=== PATIENT | male | born 1970 | race Caucasian/White ===

== ENCOUNTER 2022-11-01 11:07 | Outpatient (CLI) | payer OTHER, SELFPAY ==
[2022-11-01 11:30] LABS: Albumin* 4.3 g/dL (3.3-5.0)
[2022-11-01 11:31] LABS: Chloride* 105 mmol/L (96-114); Potassium* 4.8 mmol/L (3.6-5.1); Sodium* 137 mmol/L (135-149)
[2022-11-01 11:33] LABS: Bilirubin Total* 0.5 mg/dL (0.1-1.5); Carbon Dioxide* 25 mmol/L (20-32); Cholesterol* 208 mg/dL (90-199); Creatinine* 0.9 mg/dL (0.5-1.5); Estimated Glomerular Filt Rate 104 ml/min
[2022-11-01 11:34] LABS: Alanine Aminotransferase* 28 U/L (4-50); Alkaline Phosphatase* 54 U/L (40-150); Aspartate Amino Transferase* 27 U/L (12-35); Blood Urea Nitrogen* 9 mg/dL (7-30); Calcium* 9.2 mg/dL (8.4-10.6); Glucose* 102 mg/dL (60-115); Magnesium* 2.1 mg/dL (1.5-2.6); Total Protein* 7.1 g/dL (6.0-8.3); Triglycerides* 140 mg/dL (40-149)
[2022-11-01 11:35] LABS: HDL Cholesterol* 57 mg/dL (>=40); LDL Cholesterol Calculated 123 mg/dL (<100)
[2022-11-01 12:17] LABS: Microalbumin Creatinine Ratio 0 mg/g (0-30); Microalbumin Urine < 1 mg/dL
[2022-11-02 23:14] LABS: Prostate Specific Antigen Free 0.3 ng/mL; Prostate Specific Antigen%Free 21 %; Prostate Specific AntigenTotal 1.4 ng/mL (0.0-4.0)
== END 2022-11-01 11:08 | disposition home or self-care (01) ==
PROVIDERS: PCP Family Medicine; Visit Provider Family Medicine
DX: E78.5 Hyperlipidemia, unspecified (principal); I10 Essential (primary) hypertension; Z12.5 Encounter for screening for malignant neoplasm of prostate
CPT/HCPCS: 80053; 80061; 82043; 82570; 83735; 84153; 84154

== ENCOUNTER 2022-11-01 13:01 | Outpatient (CLI) | payer OTHER, SELFPAY ==
--- NOTE | 2022-11-01 13:00 | CRLHL7_ITS ---
For Patients: As a result of the Century Cures Act, medical imaging exams and procedure reports are released immediately into your electronic medical record. You may view this report before your referring provider. If you have questions, please contact your health care provider. INDICATION: Lung cancer screening. History of smoking. High risk patient with greater than 20 pack-year smoking history. TECHNIQUE: Low-dose lung cancer screening non-contrast CT chest. Dose reduction techniques were used. COMPARISON: None. FINDINGS: NODULES: None. LUNGS AND PLEURA: Normal. MEDIASTINUM: Normal. CORONARY ARTERY CALCIFICATION: Present. LIMITED UPPER ABDOMEN: Normal. MUSCULOSKELETAL: Normal. IMPRESSION: Negative for lung cancer screening purposes. CORONARY ARTERY CALCIFICATION. LUNG-RADS CATEGORY: 1. Negative. RADIOLOGIST RECOMMENDATION: Continued annual screening with low-dose CT chest in 12 months. Please note that all CT scans at this facility use dose modulation, iterative reconstruction, and/or weight-based dosing when appropriate to reduce radiation dose to as low as reasonably achievable. Dictated by Piter Ferrara MD @ 11/02/2022 9:05:12 AM (Electronically Signed)
== END 2022-11-01 13:02 | disposition home or self-care (01) ==
LOC: CT 13:02
PROVIDERS: PCP Family Medicine; Visit Provider Family Medicine
DX: Z12.2 Encounter for screening for malignant neoplasm of respiratory organs (principal); Z87.891 Personal history of nicotine dependence
CPT/HCPCS: 71271

== ENCOUNTER 2022-11-18 07:56 | Outpatient (CLI) | payer OTHER, SELFPAY ==
--- NOTE | 2022-11-18 10:19 | W.ANESCHARGE ---
Anesthesia Charges Start Date/Time Anesthesia Start Date: 11/18/22 Anesthesia Start Time: 09:58 Stop Date/Time Anesthesia Stop Date: 11/18/22 Anesthesia Stop Time: 10:35
--- NOTE | 2022-11-18 10:40 | W.ANESCHARGE ---
Anesthesia Charges Start Date/Time Anesthesia Start Date: 11/18/22 Anesthesia Start Time: 09:58 Stop Date/Time Anesthesia Stop Date: 11/18/22 Anesthesia Stop Time: 10:35
== END 2022-11-18 07:57 | disposition home or self-care (01) ==
LOC: OP CLINIC 07:57
PROVIDERS: PCP Family Medicine; Visit Provider Surgery
DX: Z12.11 Encounter for screening for malignant neoplasm of colon (principal); K63.5 Polyp of colon; K57.30 Diverticulosis of large intestine without perforation or abscess without bleeding; K62.89 Other specified diseases of anus and rectum; Z83.71 Family history of colonic polyps
CPT/HCPCS: 00811; 45380; 45385; 88305; J2704

== ENCOUNTER 2023-11-03 09:52 | Outpatient (CLI) | payer OTHER, SELFPAY ==
--- NOTE | 2023-11-03 10:00 | CRLHL7_ITS ---
For Patients: As a result of the Century Cures Act, medical imaging exams and procedure reports are released immediately into your electronic medical record. You may view this report before your referring provider. If you have questions, please contact your health care provider. INDICATION: Lung cancer screening. History of smoking. High risk patient with greater than 20 pack-year smoking history. TECHNIQUE: Low-dose lung cancer screening non-contrast CT chest. Dose reduction techniques were used. COMPARISON: 11/01/2022 FINDINGS: NODULES: Tiny perifissural nodules are present bilaterally. No suspicious pulmonary nodule. LUNGS AND PLEURA: No infiltrate or edema. No effusion or pneumothorax. Mild emphysema is present. MEDIASTINUM: No adenopathy. No thyroid nodule. CORONARY ARTERY CALCIFICATION: Present. LIMITED UPPER ABDOMEN: Unremarkable. MUSCULOSKELETAL: Mild multilevel degenerative disc disease. IMPRESSION: Negative for lung cancer screening purposes. LUNG-RADS CATEGORY: 1: Negative. RADIOLOGIST RECOMMENDATION: Continue annual screening with low-dose CT chest in 12 months. Please note that all CT scans at this facility use dose modulation, iterative reconstruction, and/or weight-based dosing when appropriate to reduce radiation dose to as low as reasonably achievable. Dictated by Vipin Weller MD @ 11/03/2023 11:01:07 AM (Electronically Signed)
--- OUTSIDE RECORDS SUMMARY | 2023-11-03 10:00 | XMS_ITS | Clinical Summary ---
Author Name Unknown Organization [facility] [facility] Address [place], [place] [address] Care Team Providers Care Lens Maker Name Role Phone Hattie Bishop MD Primary Care Provider + Allergies No known active allergies Medications Medication Sig Dispensed Refills Start Date End Date Status AUGMENTIN 875 MG-125 MG TABIndications:Acute suppurative otitis media with spontaneous rupture of eardrum take 1 tablet by oral route every 12 hours 28 0 05/25/2007 Active [id number] 3.5 MG-10,000 UNIT/ML-1 % OTIC DRPS (ALLSCRIPTS)Indications :Acute suppurative otitis media with spontaneous rupture of eardrum 4 drops 4 times daily for one week in both ears 10 1 06/24/2007 Active Active Problems Problem Noted Date Diagnosed Date Unspecified hearing loss 05/25/2007 Unspecified suppurative otitis media 05/25/2007 Encounters Date Type Department Care Team Description 09/19/2023 Lab Requisition [facility] [phone] Sindhu Sommers MD from Last 3 Months Social History Tobacco Use Types Packs/Day Years Used Date Smoking Tobacco: Never Alcohol Use Standard Drinks/Week Comments Not Asked 0 (1 standard drink = 0.6 oz pur e alcohol) Sex and Gender Information Value Date Recorded Sex Assigned at Not on file Gender Identity Not on file Sexual Orientation Not on file Obstetrics History Last Filed Vital Signs Vital Sign Reading Time Taken Comments Blood Pressure 137/90 05/25/2007 5:11 PM CDT Pulse 73 05/25/2007 5:11 PM CDT Temperature 36.8 ??C (98.3 ??F) 05/25/2007 5:11 PM CD T Respiratory Rate - - Oxygen Saturation - - Inhaled Oxygen Concentration - - Weight 90.4 kg (199 lb 6.4 oz) 05/25/2007 5:11 P M CDT Height - - Body Mass Index - - Plan of Treatment Health Maintenance Due Date Last Done Comments COVID-19 vaccine series (#1) 1972 Tdap 1983 Depression screening for age 12+ 1984 HIV for age 15-65 1987 BMI (ht and wt on same day) for age 18+ 1990 Hepatitis C screening for ag e 18-79 1990 Tetanus booster 1992 Colonoscopy through age 75 2017 Lipids for age 45-75 2017 07/26/2006 Zoster (shingles) series for age 50+ (1 of 2) 2022 Influenza for age 50-64 06/06/2023 Pneumococcal series for age 6-64 Aged Out No longer eligible based on patient's age to complete this topic Procedures Procedure Name Priority Date/Time Associated Diagnosis Comments LAB TRACKING EVENT Routine 09/19/2023 10 :18 AM SUB MASTER PATH TISSUE EXAM Routine 09/19/2023 10:1 0 AM SUB MASTER from Last 3 Months Results * LAB TRACKING EVENT (09/19/2023 10:18 AM SUB MASTER) Other (Other) Client Collect / Unknown 09/19/2023 10:18 AM SUB MASTER 09/19/2023 3:38 PM SUB MASTER Sindhu Sommers MD LAB BILL ONLY [facility] [address] [place] [id number], * PATH TISSUE EXAM (09/19/2023 10:10 AM SUB MASTER) Case Report Pathology Report ?Case: [id number] ? Authorizing Provider: ??Sindhu Sommers MD ?Collected: ? 09/19/2023 1010 ? Ordering Location: ? [facility] ?Received: ?09/19/2023 1619 ? Pathologist: ? Akil Yin MD ? Specimens: ?? A) - Right Vas Deferens ? B) - Left Vas Deferens ? 09/22/2023 3:56 PM SUB MASTER [facility] Final Diagnosis A) VAS DEFERENS, RIGHT, VASECTOMY: Complete luminal cross-section of vas deferens identified B) VAS DEFERENS, LEFT, VASECTOMY: Complete luminal cross-section of vas deferens identified 09/22/2023 3:56 PM SUB MASTER [facility] Clinical Information Bilateral vasectomies 09/22/2023 3:56 PM [facility] Gross Description A) Received in formalin, labeled with the patient's name and right vas def, is a 2.4 cm in length by 0.3 cm in diameter cylindrical segment of vas deferens. ??The specimen is entirely submitted in one cassette for sectioning by histology. B) Received in formalin, labeled with the patient's name and left vas def, is a 2.8 cm in length by 0.3 cm in diameter cylindrical segment of vas deferens. ??The specimen is entirely submitted in one cassette for sectioning by histology. EKW 09/19/2023 09/22/2023 3:56 PM SUB MASTER [facility] Microscopic Description The final diagnosis is based on microscopic examination of appropriate sections of all specimens. 09/22/2023 3:56 PM SUB MASTER [facility] Additional Information Interpreted at [facility] - [address] [place] [address] S. [facility] [address] [address] 09/22/2023 3:56 PM SUB MASTER [facility] Other (Right Vas Deferens) 09/19/2023 10:10 AM SUB MASTER 09/19/2023 4:19 PM SUB MASTER Specimen (specimen) (Left Vas Deferens) 09/19/2023 10:10 AM SUB MASTER 09/19/2023 4:19 PM SUB MASTER Sindhu Sommers MD PATHOLOGY/CYTOLOGY [facility] [address] [place] [address], [place] from Last 3 Months Care Teams Lens Maker Relationship Specialty Start Date End Date Hattie Bishop MD [address] [place] [address] PCP - General Family Practice 11/21/17
== END 2023-11-03 09:53 | disposition home or self-care (01) ==
PROVIDERS: PCP Family Medicine; Visit Provider Family Medicine
DX: Z12.2 Encounter for screening for malignant neoplasm of respiratory organs (principal); Z87.891 Personal history of nicotine dependence
CPT/HCPCS: 71271

== ENCOUNTER 2023-12-12 09:15 | Outpatient (CLI) | payer OTHER, SELFPAY | END 2023-12-12 09:16 | disposition home or self-care (01) | PROVIDERS: PCP Family Medicine; Visit Provider Family Medicine | DX: Z12.5 Encounter for screening for malignant neoplasm of prostate (principal); E78.2 Mixed hyperlipidemia; I10 Essential (primary) hypertension | CPT/HCPCS: 80048; 80061; G0103 ==

== ENCOUNTER 2024-01-15 07:29 | Emergency (ER) | payer OTHER, SELFPAY ==
[2024-01-15] VITALS (8 sets, daily range): BP systolic 128–151; BP diastolic 92–107; PULSE 58–63; RESP 16–20; TEMP 36.1; O2SAT 95–99; BMI 30.4
--- NOTE | 2024-01-15 08:04 | XR_ITS ---
Patient: CARLOS SIMMONS Facility:?[facility] Patient ID:?[id number] Site Patient ID:?[id number]. Site :?[id number] Study:?XRay-Chest Portable-01/15/2024 8:43:49 AM Ordering Physician:Dhruv Final Report: INDICATION: Chest pain, not otherwise described. COMPARISON: None available. TECHNIQUE: 1 view. FINDINGS: Medical Devices: None. Lung Volumes: Adequate inspiration. No significant atelectasis. Lungs: Clear lungs. Pleura and Pleural spaces: No significant pleural effusion. No pneumothorax. Mediastinum: Normal cardiomediastinal silhouette. Bony Thorax and Soft Tissues: No significant incidental findings. IMPRESSION: No imaging findings pertinent to the indication for the exam or significant unrelated findings. Dictated by En Lawton MD @ 01/15/2024 8:56:30 AM Signed by:?En Lawton MD @01/15/2024 8:56:30 AM (Electronic Signature)
--- OUTSIDE RECORDS SUMMARY | 2024-01-15 08:15 | XMS_ITS | Clinical Summary ---
Author Name Unknown Organization [facility] Address [place], [place] [address] Care Team Providers Care Grade Setter Name Role Phone Hattie Bishop MD Primary Care Provider + Allergies No known active allergies Medications Medication Sig Dispensed Refills Start Date End Date Status AUGMENTIN 875 MG-125 MG TABIndications:Acute suppurative otitis media with spontaneous rupture of eardrum take 1 tablet by oral route every 12 hours 28 0 05/25/2007 Active [id number] 3.5 MG-10,000 UNIT/ML-1 % OTIC DRPS (ALLSCRIPTS)Indications :Acute suppurative otitis media with spontaneous rupture of eardrum 4 drops 4 times daily for one week in both ears 10 1 06/24/2007 Active Active Problems Problem Noted Date Diagnosed Date Unspecified hearing loss 05/25/2007 Unspecified suppurative otitis media 05/25/2007 Social History Tobacco Use Types Packs/Day Years [...] Health Maintenance Due Date Last Done Comments Tdap 1983 Depression screening for age 12+ 1984 HIV for age 15-65 1987 BMI (ht and wt on same day) for age 18+ 1990 Hepatitis C screening for ag e 18-79 1990 Tetanus booster 1992 Colonoscopy through age 75 2017 Lipids for age 45-75 2017 07/26/2006 Zoster (shingles) series for age 50+ (1 of 2) 2022 COVID-19 vaccine series ( - 2022-24 season) 2023 Influenza for age 50-64 06/06/2024 Pneumococcal series for age 6-64 Aged Out No longer eligible based on patient's age to complete this topic Procedures Procedure Name Priority Date/Time Associated Diagnosis Comments LIPID PANEL Timed 07/26/2006 10:41 AM CDT from Last 3 Months or Most Recently Relevant to Health Maintenance Results * (ABNORMAL) LIPID PANEL (07/26/2006 10:41 AM CDT) CHOLESTEROL,TOTAL 416(H) 110 - 199 mg/dL [facility] TRIGLYCERIDES 373(H) <150 mg/dL [facility] HDL CHOLESTEROL 51 >40 mg/dL [facility] CHOL/HDL RATIO 8.16(H) <4.51 [facility] LDL CHOLESTEROL 290(H) <131 mg/dL [facility] PATIENT STATUS Fasting [facility] 07/26/2006 10:4 1 AM CDT 07/26/2006 10:41 AM CDT Giselle Duran MD CHEMISTRY [facility] [address] [place] [address] from Last 3 Months or Most Recently Relevant to Health Maintenance Care Teams Grade Setter Relationship Specialty Start Date End Date Hattie Bishop MD [address] [place] [address] PCP - General Family Practice 11/21/17
--- NOTE | 2024-01-15 08:21 | ED_ITS ---
HPI - Chest Pain General Chief Complaint: Chest Pain Stated Complaint: Heaviness in chest Time Seen by Provider: 01/15/24 07:58 History of Present Illness HPI narrative: Patient is a 53-year-old gentleman who states he has been having intermittent chest pain for last several days. The pain often wakes him up at night and is 5/10 and located in the midline of his chest. He has had no fevers no chills no night sweats no cough no shortness of breath. He had symptoms this morning say ral hours ago and comes in today for further evaluation. Patient admits on several occasion he drinks too much alcohol but tries E well. He has had no history of any cardiovascular disease and takes no medications. EKG upon arrival upon my review shows normal sinus rhythm without acute ST or T-wave changes. Related Data Home Medications Medication Instructions Recorded Confirmed No Known Home Medications 01/15/24 01/15/24 Allergies Allergy/AdvReac Type Severity Reaction Status Date / Time No Known Drug Allergies Allergy Verified 12/12/23 08:43 Review of Systems Status of ROS Reports: 10 or more systems reviewed and unremarkable except as noted in History and below [facility] Medical History Primary hypertension ?I10 - Essential (primary) hypertension (ICD-10) Mixed hyperlipidemia ?E78.2 - Mixed hyperlipidemia (ICD-10) Cholesteatoma ?H71.90 - Unspecified cholesteatoma, unspecified ear (ICD-10) Alcohol dependence ?F10.20 - Alcohol dependence, uncomplicated (ICD-10) History of recurrent ear infection ?Z86.69 - Personal history of other diseases of the nervous system and sense organs (ICD-10) Hearing loss (12/20/09) ?H91.90 - Unspecified hearing loss, unspecified ear (ICD-10) Surgical History S/P vasectomy ?Z98.52 - Vasectomy status (ICD-10) History of tympanostomy ?Z98.890 - Other specified postprocedural states (ICD-10) History of tympanomastoidectomy (2004) ?Z98.890 - Other specified postprocedural states (ICD-10) History of ear surgery (10/2017) ?Z98.890 - Other specified postprocedural states (ICD-10) Family History Aunt Breast cancer Sister Lung cancer Brother Prostate cancer Family/Other No problems noted. Father Prostate cancer Social History Narrative: exercises three times per week, , owns [employer], 3 kids, former smoker, social alcohol Smoking Status: Current every day smoker Do you use any of these nicotine containing products: Smokeless Tobacco and Other How often do you have a drink containing alcohol: 4 or more times a week How many standard drinks containing alcohol do you have on a typical day: 5 or 6 AUDIT-C Alcohol total score: 6 Non-prescribed substance use: denies use Little interest or pleasure in doing things: not at all Feeling down, depressed, or hopeless: not at all Exam Narrative Exam Narrative: EXAM GENERAL: Patient appears comfortable and well. EYES: No scleral icterus. LYMPH: No supraclavicular or cervical lymphadenopathy. SKIN: Visible skin seen during exam normal or with benign process only. EXT: No dependent lower extremity pedal edema. HEART: Regular rate and rhythm with no murmurs, rubs, or gallops. LUNGS: Clear to auscultation bilaterally with no crackles or wheezes. ABD: Soft, non tender, non distended. PSYCH: Good eye contact, speech is not pressured. Const Vital Signs, click to edit/add: Vital Signs - 24 hr 01/15/24 07:40 Temperature 96.9 F L Pulse Rate [Pulse Oximeter] 61 Respiratory Rate 20 Blood Pressure [Right Upper Arm] 151/107 H Pulse Oximetry 99 Oxygen Delivery Method Room Air Course Course ED Course: EKG is reassuring. Portable chest troponin D-dimer CBC CMP ETOH pending. Vital Signs Vital signs: Initial Vital Signs Temperature 96.9 F L 01/15/24 07:40 Temperature Source Temporal Artery Scan 01/15/24 07:40 Pulse Rate 61 01/15/24 07:40 Respiratory Rate 20 01/15/24 07:40 Blood Pressure 151/107 H 01/15/24 07:40 Blood Pressure Mean 121 H 01/15/24 07:40 Blood Pressure Position Supine 01/15/24 07:40 Pulse Oximetry 99 01/15/24 07:40 Oxygen Delivery Method Room Air 01/15/24 07:40 Vital Signs Temperature 96.9 F L 01/15/24 07:40 Pulse Rate 61 01/15/24 07:40 Respiratory Rate 20 01/15/24 07:40 Blood Pressure 151/107 H 01/15/24 07:40 Pulse Oximetry 99 01/15/24 07:40 Oxygen Delivery Method Room Air 01/15/24 07:40 Temperature 96.9 F L 01/15/24 07:40 Pulse Rate 61 01/15/24 07:40 Respiratory Rate 20 01/15/24 07:40 Blood Pressure 151/107 H 01/15/24 07:40 Pulse Oximetry 99 01/15/24 07:40 Oxygen Delivery Method Room Air 01/15/24 07:40 MDM - Chest Pain MDM Narrative Medical decision making narrative: Patient is a 53-year-old gentleman comes in today stating that he has been hav ing chest pain for the last several weeks at night. His evaluation showed normal EKG normal troponin normal D-dimer electrolytes unremarkable CBC unremarkable. Patient admits to drinking too much alcohol and having chronic elevated blood pressure. He is willing to take blood pressure medications admits that he is somewhat anxious. I did dianetic counselor him on his excess alcohol use in addition, I did is start him on amlodipine 5 mg daily and recommend close outpatient follow-up with his primary physician. Differential diagnosis includes but not limited to aortic dissection acute myocardial infarction pneumonia pneumothorax pulmonary embolism hypertension anxiety. Lab Data Labs: Lab Results 01/15/24 Range/Units 07:45 WBC 5.64 (4.50-11.00) K/uL RBC 4.84 (4.30-5.90) m/uL Hgb 14.6 (13.5-17.5) gm/dL Hct 43.7 (37.0-53.0) % MCV 90 (80-100) fL MCH 30 (26-34) pg MCHC 33 (32-36) gm/dL RDW Coeff of Guilherme 12.8 (11.5-15.5) % Plt Count 239 (140-440) K/uL Neut % (Auto) 53.9 (42.0-72.0) % Lymph % (Auto) 31.2 (20-44) % [place] % (Auto) 11.3 H (0.0-11.0) % Eos % (Auto) 2.7 (0.0-7.0) % Baso % (Auto) 0.7 (0.0-3.0) % Neut # (Auto) 3.04 (1.7-7.0) K/uL Lymph # (Auto) 1.76 (0.90-2.90) K/uL [place] # (Auto) 0.60 (0.00-0.90) K/UL Eos # (Auto) 0.15 (0.00-0.50) K/uL Baso # (Auto) 0.04 (0.00-0.30) K/uL Abs Immat Gran (auto) 0.01 (0.00-0.30) K/uL Imm/Tot Granulo (auto) 0.2 % D-Dimer Quant (PE/DVT) 0.31 (0.00-0.50) ug/ml Sodium 135 (135-149) mmol/L Potassium 4.6 (3.6-5.1) mmol/L Chloride 102 (96-114) mmol/L Carbon Dioxide 24 (20-32) mmol/L Anion Gap 9 (7-15) mEq/L BUN 13 (7-30) mg/dL Creatinine 0.8 (0.5-1.5) mg/dL Estimated Creat Clear 105.69 Estimated GFR 107 ml/min Glucose 114 (60-115) mg/dL Calcium 9.3 (8.4-10.6) mg/dL Total Bilirubin 0.5 (0.1-1.5) mg/dL AST 31 (12-35) U/L ALT 31 (4-50) U/L Alkaline Phosphatase 77 (40-150) U/L Troponin I < 0.01 L (0.01-0.04) ng/mL Total Protein 8.2 (6.0-8.3) g/dL Albumin 4.7 (3.3-5.0) g/dL Ethyl Alcohol < 0.01 L (0.01-0.03) % Discharge Plan Discharge Clinical Impression: Hypertension Patient Disposition: Home, Self-Care Condition: Stable Instructions: Hypertension (ED) Additional Instructions: Start amlodipine 5 mg daily Follow-up with your doctor within the next week. Activity Level: No Restrictions Discharge Diet: Regular Prescriptions: No Action No Known Home Medications Follow Up/Referrals: Vipin Cochran MD [Primary Care Provider] - Stand Alone Forms: [employer] Info Instructions
[2024-01-15 08:28] LABS: Basophils Absolute Auto 0.04 K/uL (0.00-0.30); Basophils Percent Auto 0.7 % (0.0-3.0); Eosinophils Absolute Auto 0.15 K/uL (0.00-0.50); Eosinophils Percent Auto 2.7 % (0.0-7.0); Hematocrit 43.7 % (37.0-53.0); Hemoglobin* 14.6 gm/dL (13.5-17.5); Immature Granulocytes Abs Auto 0.01 K/uL (0.00-0.30); Immature Granulocytes Pct Auto 0.2 %; Lymphocytes Absolute Auto 1.76 K/uL (0.90-2.90); Lymphocytes Percent Auto 31.2 % (20-44); Mean Corpuscular HGB Conc 33 gm/dL (32-36); Mean Corpuscular Hemoglobin 30 pg (26-34); Mean Corpuscular Volume 90 fL (80-100); Monocytes Percent Auto 11.3 % (0.0-11.0); Neutrophils Absolute Auto 3.04 K/uL (1.7-7.0); Neutrophils Percent Auto 53.9 % (42.0-72.0); Platelet Count* 239 K/uL (140-440); RDW Coefficient of Variation % 12.8 % (11.5-15.5); Red Blood Count 4.84 m/uL (4.30-5.90); White Blood Count* 5.64 K/uL (4.50-11.00)
[2024-01-15 08:35] LABS: Slide Review Reflex No
[2024-01-15 08:42] LABS: Albumin* 4.7 g/dL (3.3-5.0); Chloride* 102 mmol/L (96-114)
[2024-01-15 08:43] LABS: Potassium* 4.6 mmol/L (3.6-5.1); Sodium* 135 mmol/L (135-149)
[2024-01-15 08:45] LABS: Alkaline Phosphatase* 77 U/L (40-150); Anion Gap 9 mEq/L (7-15); Aspartate Amino Transferase* 31 U/L (12-35); Bilirubin Total* 0.5 mg/dL (0.1-1.5); Carbon Dioxide* 24 mmol/L (20-32); Creatinine* 0.8 mg/dL (0.5-1.5); Est. Creatinine Clearance* 105.69; Estimated Glomerular Filt Rate 107 ml/min; Total Protein* 8.2 g/dL (6.0-8.3)
[2024-01-15 08:46] LABS: Alanine Aminotransferase* 31 U/L (4-50); Blood Urea Nitrogen* 13 mg/dL (7-30); Calcium* 9.3 mg/dL (8.4-10.6); D Dimer Quantitative* 0.31 ug/ml (0.00-0.50); Glucose* 114 mg/dL (60-115)
[2024-01-15 08:58] LABS: Ethanol* < 0.01 % (0.01-0.03); Troponin I* < 0.01 ng/mL (0.01-0.04)
--- NOTE | 2024-01-15 10:10 | ED.NURSE ---
Call from [facility], amlodipine verbal given to pharmacist, 5mg daily 30 tab, 3 refill.
== END 2024-01-15 09:53 | disposition home or self-care (01) ==
PROVIDERS: Emergency Provider Internal Medicine; PCP Family Medicine
DX: I10 Essential (primary) hypertension (principal)
CPT/HCPCS: 36415; 71045; 80053; 82077; 84484; 85025; 85379; 93005; 99283; 99284

== ENCOUNTER 2024-02-05 12:45 | Outpatient (CLI) | payer OTHER, SELFPAY ==
--- OUTSIDE RECORDS SUMMARY | 2024-02-05 12:48 | XMS_ITS | Clinical Summary ---
Author Name Unknown Organization [facility] Address [place], [place] [address] Care Team Providers Care Epic Willow Analyst Name Role Phone Hattie Bishop MD Primary Care Provider + Allergies No known active allergies Medications Medication Sig Dispensed Refills Start Date End Date Status AUGMENTIN 875 MG-125 MG TABIndications:Acute suppurative otitis media with spontaneous rupture of eardrum take 1 tablet by oral route every 12 hours 28 0 05/25/2007 Active [id number] 3.5 MG-10,000 UNIT/ML-1 % OTIC DRPS (ALLSCRIPTS)Indications [...] Mass Index - - Plan of Treatment Upcoming Encounters Date Type Department Care Team (Late st Contact Info) Description 02/05/2024 1:00 PM CDT Orders Only [facility] [address] [place] [address] Health Maintenance Due Date Last Done Comments [...] 2) 2022 COVID-19 vaccine series ( - 2022- season) 2023 Influenza for age 50-64 06/06/2024 [...] CDT) CHOLESTEROL,TOTAL 416(H) 110 - 199 mg/dL [facility] TRIGLYCERIDES 373(H) <150 mg/dL [facility] HDL CHOLESTEROL 51 >40 mg/dL [facility] CHOL/HDL RATIO 8.16(H) <4.51 [facility] LDL CHOLESTEROL 290(H) <131 mg/dL [facility] PATIENT STATUS Fasting [facility] 07/26/2006 10:4 1 AM CDT 07/26/2006 10:41 AM CDT Giselle Duran MD CHEMISTRY [facility] [address] [place] [address] from Last 3 Months or Most Recently Relevant to Health Maintenance Care Teams Epic Willow Analyst Relationship Specialty Start Date End Date Hattie Bishop MD [address] [place] [address] PCP - General Family Practice 11/21/17
--- NOTE | 2024-02-05 13:37 | W.PM.STED ---
Stress Test Note Date Date Seen: 02/05/24 Date of test: 02/05/24 Providers Primary care provider: Vipin Cochran Stress test physician: Oneida Moreno Stress Test Note Stress test ordered: Stress Echo Indication for test: Chest pain Stress test medicine: None Results discussion: Resting EKG: Sinus rhythm, 64 beats per minute. Flipped T-waves lead 3. Resting blood pressure: 136/88 Stress test: Patient was consented on stress test ordered. Patient followed standard Mychal protocol for exercise treadmill stress echo. Patient was able to exercise for 9 minutes 31 seconds, stopping due to reaching heart rate and meeting exercise capacity. Patient did feel leg discomfort from the incline and was short of breath. He achieved in equivalent of 11.1 Mets. He had a maximum heart rate of 161 beats per minute which was 111% of a calculated target of 144. Rate pressure product with a maximal blood pressure near and of exercise 180/90 and maximal heart rate of 161 is 28,980. Patient did not experience any chest discomfort. Patient had non specific ST segment changes in V5 and V6 not meeting criteria for ischemia. During exercise, no definitive ischemia or arrhythmia was noted. Patient's blood pressure on initial recovery was 204/99. Impression: Subjectively negative, objectively negative EKG portion of this stress test, hypertensive response to exercise. Follow up suggested: Patient presumes that he will get a phone call from ordering physician once the stress test is back. We have discussed that he should call the clinic if he has not heard from them by this coming Friday. He is asymptomatic at time of discharge, had no chest symptoms during the stress test. Will await echo images to couple this for a full formal diagnostic. Do recommend lifestyle monitoring and modification if applicable with his primary care provider.
[2024-02-05 13:48] VITALS: BP 151/95; PULSE 82
== END 2024-02-05 12:46 | disposition home or self-care (01) ==
LOC: STRESS 12:46
PROVIDERS: PCP Family Medicine; Visit Provider Family Medicine
DX: R07.9 Chest pain, unspecified (principal)
CPT/HCPCS: 93016; 93325; 93351

== ENCOUNTER 2024-11-12 09:53 | Outpatient (CLI) | payer OTHER, SELFPAY ==
--- NOTE | 2024-11-12 10:00 | CRLHL7_ITS ---
For Patients: As a result of the Century Cures Act, medical imaging exams and procedure reports are released immediately into your electronic medical record. You may view this report before your referring provider. If you have questions, please contact your health care provider. INDICATION: Lung cancer screening. History of smoking. High risk patient with greater than 20 pack-year smoking history. TECHNIQUE: Low-dose lung cancer screening non-contrast CT chest. Dose reduction techniques were used. COMPARISON: None. FINDINGS: NODULES: 2 millimeter perifissural nodule /70. LUNGS AND PLEURA: No acute findings. MEDIASTINUM: Unremarkable. CORONARY ARTERY CALCIFICATION: Present. LIMITED UPPER ABDOMEN: Unremarkable. MUSCULOSKELETAL: Multilevel discogenic spurring is present. IMPRESSION: Negative for lung cancer screening purposes. LUNG-RADS CATEGORY: 2: Benign. RADIOLOGIST RECOMMENDATION: Continue annual screening with low-dose CT chest in 12 months. Please note that all CT scans at this facility use dose modulation, iterative reconstruction, and/or weight-based dosing when appropriate to reduce radiation dose to as low as reasonably achievable. Dictated by Vipin Weller MD @ 11/12/2024 11:41:50 AM (Electronically Signed)
== END 2024-11-12 09:54 | disposition home or self-care (01) ==
LOC: CT 09:55
PROVIDERS: PCP Family Medicine; Visit Provider Family Medicine
DX: Z12.2 Encounter for screening for malignant neoplasm of respiratory organs (principal); Z87.891 Personal history of nicotine dependence
CPT/HCPCS: 71271

== ENCOUNTER 2024-12-14 10:01 | Outpatient (CLI) | payer OTHER, SELFPAY | END 2024-12-14 10:02 | disposition home or self-care (01) | PROVIDERS: PCP Family Medicine; Visit Provider Family Medicine | DX: I10 Essential (primary) hypertension (principal); E78.2 Mixed hyperlipidemia; F10.20 Alcohol dependence, uncomplicated; Z12.5 Encounter for screening for malignant neoplasm of prostate; F41.1 Generalized anxiety disorder | CPT/HCPCS: 80061; 80076; G0103 ==

== ENCOUNTER 2025-09-12 07:35 | Outpatient (CLI) | payer OTHER, SELFPAY ==
--- NOTE | 2025-09-12 07:30 | CRLHL7_ITS ---
For Patients: As a result of the Century Cures Act, medical imaging exams and procedure reports are released immediately into your electronic medical record. You may view this report before your referring provider. If you have questions, please contact your health care provider. INDICATION: Testicular pain COMPARISON: none TECHNIQUE: Nickerson scale imaging was performed of the scrotum. In addition color Doppler and spectral Doppler analysis was performed of the testes. FINDINGS: The testes demonstrate normal arterial and venous blood flow on color Doppler and spectral Doppler analysis. The testes have uniform echogenicity with no evidence of a suspicious mass or area of inflammation. The right testis measures 5.0 x 2.0 x 4.5 cm in size and the left testis measures 4.7 x 2.4 x 4.3 cm. The epididymis appears normal bilaterally. There is no evidence of a hydrocele. Mild left varicocele. IMPRESSION: Normal testicles. Mild left varicocele. Dictated by Vipin Weller MD @ 09/12/2025 9:24:45 AM (Electronically Signed)
== END 2025-09-12 07:36 | disposition home or self-care (01) ==
LOC: US 07:35
PROVIDERS: PCP Family Medicine; Visit Provider Surgery
DX: N50.819 Testicular pain, unspecified (principal); I86.1 Scrotal varices
CPT/HCPCS: 76870; 93976